=== PATIENT | female | born 2000 | race Caucasian/White ===

== ENCOUNTER → 2023-03-23 09:21 | Outpatient (REF) | payer OTHER, SELFPAY | LOC: HWRAD 09:21 | PROVIDERS: ATTENDING PHYSICIAN Internal Medicine | DX: R17 Unspecified jaundice (principal) | CPT/HCPCS: 76700 ==

== ENCOUNTER → 2023-04-02 13:37 | Outpatient (REF) | payer OTHER, SELFPAY | LOC: MRI 3T 13:37 | PROVIDERS: ATTENDING PHYSICIAN Internal Medicine | DX: K76.9 Liver disease, unspecified (principal) | CPT/HCPCS: 74183; A9575 ==

== ENCOUNTER → 2023-07-07 06:22 | Day surgery (SDC) | payer BC, SELFPAY | LOC: GI 06:22 | PROVIDERS: ATTENDING PHYSICIAN Internal Medicine Gastroenterology | DX: R19.4 Change in bowel habit (principal) | CPT/HCPCS: 45378 ==

== ENCOUNTER → 2023-09-23 09:45 | Outpatient (REF) | payer BC, SELFPAY | LOC: HWRAD 09:45 | PROVIDERS: ATTENDING PHYSICIAN Internal Medicine | DX: R10.84 Generalized abdominal pain (principal) | CPT/HCPCS: 76700 ==

== ENCOUNTER → 2024-12-09 08:45 | Outpatient (REF) | payer BC, SELFPAY | LOC: RCS 08:45 | PROVIDERS: ATTENDING PHYSICIAN Nurse Practitioner Adult Health | DX: R42 Dizziness and giddiness (principal) | CPT/HCPCS: 93225; 93226 ==